=== PATIENT | male | born 1995 | race African-American/Black ===

== ENCOUNTER 2021-05-13 16:24 | Emergency (ER) | payer SELFPAY | END 2021-05-13 17:32 | disposition home or self-care (01) | LOC: ERS 16:24 | DX: M54.50 Low back pain, unspecified (principal); Z87.891 Personal history of nicotine dependence | CPT/HCPCS: 99283 ==

== ENCOUNTER 2021-06-05 04:03 | Emergency (ER) | payer SELFPAY ==
[2021-06-05] MEDS ORDERED: Ibuprofen 800 MG TAB ONE (04:19)
[2021-06-05] MEDS ORDERED: Acetaminophen 500 MG TAB ONE (04:19)
[2021-06-05] MEDS ORDERED: Metoclopramide HCl 10 MG/2 ML VIAL ONE (04:45)
[2021-06-05] MEDS ORDERED: diphenhydrAMINE 50 MG/ML VIAL ONE (04:45)
== END 2021-06-05 06:00 | disposition home or self-care (01) ==
LOC: ERS 04:03
DX: G44.009 Cluster headache syndrome, unspecified, not intractable (principal); Z87.891 Personal history of nicotine dependence
CPT/HCPCS: 96372; 99283; J1200; J2765

== ENCOUNTER 2021-12-20 14:02 | Emergency (ER) | payer BC, SELFPAY | END 2021-12-20 17:02 | disposition home or self-care (01) | LOC: ERS 14:02 | DX: M79.641 Pain in right hand (principal); M79.642 Pain in left hand; Z87.891 Personal history of nicotine dependence | CPT/HCPCS: 99282 ==

== ENCOUNTER 2022-01-05 19:47 | Emergency (ER) | payer BC ==
[2022-01-05] MEDS ORDERED: Meclizine HCl 25 MG TAB ONE (20:47)
== END 2022-01-05 21:18 | disposition home or self-care (01) ==
LOC: ERS 19:47
DX: R42 Dizziness and giddiness (principal); Z20.822 Contact with and (suspected) exposure to COVID-19
CPT/HCPCS: 93005; U0003; U0005

== ENCOUNTER 2022-02-08 16:34 | Emergency (ER) | payer BC ==
[2022-02-08] MEDS ORDERED: Lidocaine 4% Cream 5 GM TUBE w/ Tegaderm ONE (17:38)
== END 2022-02-08 18:45 | disposition home or self-care (01) ==
LOC: ERS 16:34
DX: L03.032 Cellulitis of left toe (principal); L02.612 Cutaneous abscess of left foot
CPT/HCPCS: 10160

== ENCOUNTER 2022-03-03 16:47 | Emergency (ER) | payer BC | END 2022-03-03 18:31 | disposition home or self-care (01) | LOC: ERS 16:47 | DX: L60.0 Ingrowing nail (principal) | CPT/HCPCS: 11750 ==